=== PATIENT | male | born 1935 | race Hispanic/Latino ===

== ENCOUNTER → 2020-03-02 | Day surgery (SDC) | payer MEDICARE ==
[2020-02-26 12:14] LABS: BASOPHILS % 0.9 % (0.0-1.0); EOSINOPHILS # (AUTO) 0.2 (0.0-0.4); HEMATOCRIT 33.9 % (38.2-49.6); HEMOGLOBIN 10.9 g/dL (14.0-18.0); LYMPHOCYTES # (AUTO) 0.7 (1.0-3.2); MEAN CORPUSCULAR HEMOGLOBIN 31.6 pg (28-32); MEAN CORPUSCULAR HGB CONC 32.2 g/dL (31-35); MEAN CORPUSCULAR VOLUME 98.3 fL (81-99); MONOCYTES # (AUTO) 0.4 (0.2-0.8); MONOCYTES % 16.2 % (4.4-11.3); PLATELET COUNT 153 x10e3/uL (140-360); RED BLOOD COUNT 3.45 x10e6/uL (4.3-5.7); RED CELL DISTRIBUTION WIDTH 13.2 % (11.7-14.4)
[2020-02-26 13:30] LABS: EOSINOPHILS % (MANUAL) 6 % (0-7); LYMPHOCYTES % (MANUAL) 23 % (19-48); MONOCYTES % (MANUAL) 20 % (3.4-9.0); NEUTROPHILS % (MANUAL) 45 % (40-74); RBC MORPHOLOGY COMMENT NORMAL
[2020-02-26 13:31] LABS: PLATELET ESTIMATE ADEQUATE; PLATELET MORPHOLOGY COMMENT NORMAL
[~2020-03-02] MED LIST: FLOMAX0.4 MG PO; HYDROCODON-ACE1 EAC9 PO; LIDOCAINE HCL 2% LOCAL INJ 5 ML SDV VIAL INJ ONE; LISINOPRIL10 MG PO; OMEPRAZOLE40 MG PO; PROPOFOL IV EMULSION 10 MG/ML 20 ML VIAL ONE; SIMETHICONE 40 MG/0.6 ML BTL ONE; ULTRAM 50MG50 MG PO
[2020-03-02 11:30] VITALS: BP 164/75
== END | disposition home or self-care (01) ==
LOC: OR 07:28
PROVIDERS: ATTEND Internal Medicine Gastroenterology
DX: K29.70 Gastritis, unspecified, without bleeding (principal); D12.0 Benign neoplasm of cecum; K44.9 Diaphragmatic hernia without obstruction or gangrene; K59.00 Constipation, unspecified; K57.30 Diverticulosis of large intestine without perforation or abscess without bleeding; K64.8 Other hemorrhoids; Z90.49 Acquired absence of other specified parts of digestive tract; I10 Essential (primary) hypertension; E11.9 Type 2 diabetes mellitus without complications; R93.89 Abnormal findings on diagnostic imaging of other specified body structures; N40.0 Benign prostatic hyperplasia without lower urinary tract symptoms; N28.9 Disorder of kidney and ureter, unspecified; Z01.810 Encounter for preprocedural cardiovascular examination; Z01.812 Encounter for preprocedural laboratory examination; Z20.822 Contact with and (suspected) exposure to COVID-19; Z68.32 Body mass index [BMI] 32.0-32.9, adult
CPT/HCPCS: 36415 ×2; 43239; 45385; 82948; 85025; 88305; 88312; 93005; J2001; J2704; U0002

== ENCOUNTER 2021-10-12 09:07 | Inpatient (IN) | payer MEDICARE ==
[2021-10-07 10:19] LABS: BASOPHILS % 0.3 % (0.0-1.0); EOSINOPHILS # (AUTO) 0.2 (0.0-0.4); EOSINOPHILS % 7.1 % (0.0-6.0); HEMATOCRIT 36.2 % (38.2-49.6); HEMOGLOBIN 11.5 g/dL (14.0-18.0); LYMPHOCYTES # (AUTO) 1.1 (1.0-3.2); LYMPHOCYTES % 34.3 % (18.0-39.1); MEAN CORPUSCULAR HEMOGLOBIN 29.9 pg (28-32); MEAN CORPUSCULAR HGB CONC 31.8 g/dL (31-35); MEAN CORPUSCULAR VOLUME 94.3 fL (81-99); MONOCYTES # (AUTO) 0.4 (0.2-0.8); MONOCYTES % 14.1 % (4.4-11.3); NEUTROPHILS # (AUTO) 1.4 (2.1-6.9); NEUTROPHILS % 43.2 % (38.7-80.0); PLATELET COUNT 180 x10e3/uL (140-360); RED BLOOD COUNT 3.84 x10e6/uL (4.3-5.7); RED CELL DISTRIBUTION WIDTH 14.9 % (11.7-14.4)
[2021-10-07 10:32] LABS: ANION GAP 14.8 mmol/L (8-16); CALCIUM 9.3 mg/dL (8.4-10.2); CREATININE, SERUM 1.63 mg/dL (0.72-1.25); POTASSIUM 4.8 mmol/L (3.5-5.1)
[~2021-10-12] VITALS: Ht 172.7 cm; Wt 81.6 kg
[~2021-10-12 09:07] MED LIST changes: +AMLODIPINE BESYL5 MG PO; +FINASTERIDE5 MG PO; -LIDOCAINE HCL 2% LOCAL INJ 5 ML SDV VIAL INJ ONE; +LINZESS290 MCG PEG; -PROPOFOL IV EMULSION 10 MG/ML 20 ML VIAL ONE; -SIMETHICONE 40 MG/0.6 ML BTL ONE
[2021-10-12] MEDS ORDERED: GENTAMICIN 80MG/NS IV ONE (09:25)
[2021-10-12] MEDS ORDERED: SODIUM CHLORIDE 0.9% 1000ML 1,000 ML ONE (09:32)
[2021-10-12] MEDS ORDERED: PIPERACILLIN/TAZOBACTAM 3.375 GM VIAL ONE (09:32)
[2021-10-12] MEDS ORDERED: B&O 60MG R/S 60 MG SUPP PR ONE (10:21)
[2021-10-12] MEDS ORDERED: IOPAMIDOL 300MG/ML 50ML INFUS..BTL IV ONE (10:21)
[2021-10-12] MEDS ORDERED: B&O 60MG R/S 60 MG SUPP PR PRN (13:00)
[2021-10-12] MEDS ORDERED: ACETAMINOPHEN 1000 MG/100 ML IV PRN (13:00)
[2021-10-12] MEDS ORDERED: ONDANSETRON HCL INJ 2MG/ML 2ML 2 MG/ML VIAL IV PRN (13:00)
[2021-10-12] MEDS ORDERED: DEXAMETHASONE SOD PHOS INJ 4 MG/ML SDV ONE (13:03)
[2021-10-12] MEDS ORDERED: SEVOFLURANE INHAL SOLN 250 ML PEN BTL ONE (13:03)
[2021-10-12] MEDS ORDERED: PROPOFOL IV EMULSION 10 MG/ML 20 ML VIAL ONE (13:03)
[2021-10-12] MEDS ORDERED: ACETAMINOPHEN 1000 MG/100 ML IV ONE (13:03)
[2021-10-12] MEDS ORDERED: POVIDONE IODINE 0.05% 0.05 % ML PO ONE (13:03)
[2021-10-12] MEDS ORDERED: LIDOCAINE HCL 2% LOCAL INJ 5 ML SDV VIAL INJ ONE (13:03)
[2021-10-12] MEDS ORDERED: ONDANSETRON HCL INJ 2MG/ML 2ML 2 MG/ML VIAL ONE (13:03)
[2021-10-12] MEDS ORDERED: FENTANYL CITRATE/PF 100MCG/2 ML INJ ONE ×2 (13:15→13:23)
[2021-10-12 13:45] LABS: BASOPHILS % 0.2 % (0.0-1.0); EOSINOPHILS # (AUTO) 0.1 (0.0-0.4); EOSINOPHILS % 2.4 % (0.0-6.0); HEMATOCRIT 35.7 % (38.2-49.6); HEMOGLOBIN 11.2 g/dL (14.0-18.0); LYMPHOCYTES # (AUTO) 1.8 (1.0-3.2); LYMPHOCYTES % 40.7 % (18.0-39.1); MEAN CORPUSCULAR HGB CONC 31.4 g/dL (31-35); MEAN CORPUSCULAR VOLUME 95.7 fL (81-99); MONOCYTES # (AUTO) 0.3 (0.2-0.8); MONOCYTES % 7.3 % (4.4-11.3); NEUTROPHILS # (AUTO) 2.2 (2.1-6.9); PLATELET COUNT 168 x10e3/uL (140-360); RED BLOOD COUNT 3.73 x10e6/uL (4.3-5.7); RED CELL DISTRIBUTION WIDTH 14.7 % (11.7-14.4)
[2021-10-12] MEDS ORDERED: Morphine 2mg Syringe 2 MG/ML SYR ONE ×2 (13:45→13:58)
[2021-10-12 14:19] LABS: ANION GAP 17.2 mmol/L (8-16); CALCIUM 8.4 mg/dL (8.4-10.2); CREATININE, SERUM 1.43 mg/dL (0.72-1.25); POTASSIUM 4.2 mmol/L (3.5-5.1)
[2021-10-12 14:30] VITALS: BP 154/76
[2021-10-12] MEDS: SODIUM CHLORIDE 0.9% 1000ML 1,000 ML IV SCH (14:30)
[2021-10-12] MEDS: DOCUSATE SODIUM 100 MG CAP PO SCH (16:32)
[2021-10-12] MEDS: ACETAMINOPHEN/CODEINE 300MG - 30MG TAB PO PRN ×2 (16:50→22:02)
[2021-10-12 19:51] VITALS: BP 144/81
[2021-10-12 19:52] VITALS: BP 144/81
[2021-10-12 20:00] VITALS: BP 141/81
[2021-10-12] MEDS: PHENAZOPYRIDINE HCL 100 MG TAB PO PRN (22:02)
[2021-10-13] VITALS (12 sets, daily range): BP systolic 133–145; BP diastolic 56–76
[2021-10-13 04:55] LABS: HEMATOCRIT 35.3 % (38.2-49.6); HEMOGLOBIN 11.4 g/dL (14.0-18.0); LYMPHOCYTES # (AUTO) 0.5 (1.0-3.2); LYMPHOCYTES % 14.9 % (18.0-39.1); MEAN CORPUSCULAR HEMOGLOBIN 30.1 pg (28-32); MEAN CORPUSCULAR HGB CONC 32.3 g/dL (31-35); MEAN CORPUSCULAR VOLUME 93.1 fL (81-99); MONOCYTES # (AUTO) 0.4 (0.2-0.8); NEUTROPHILS # (AUTO) 2.7 (2.1-6.9); NEUTROPHILS % 73.8 % (38.7-80.0); PLATELET COUNT 168 x10e3/uL (140-360); RED BLOOD COUNT 3.79 x10e6/uL (4.3-5.7); RED CELL DISTRIBUTION WIDTH 14.5 % (11.7-14.4)
[2021-10-13 05:14] LABS: ANION GAP 14.4 mmol/L (8-16); CALCIUM 8.5 mg/dL (8.4-10.2); CREATININE, SERUM 1.45 mg/dL (0.72-1.25); POTASSIUM 4.4 mmol/L (3.5-5.1)
[2021-10-13] MEDS: PHENAZOPYRIDINE HCL 100 MG TAB PO PRN ×2 (06:16→20:57)
[2021-10-13] MEDS: ACETAMINOPHEN/CODEINE 300MG - 30MG TAB PO PRN ×2 (06:17→20:57)
[2021-10-13] MEDS ORDERED: PANTOPRAZOLE SOD 40 MG TABEC PO SCH (07:30)
[2021-10-13] MEDS: FINASTERIDE 5 MG TAB PO SCH (09:05)
[2021-10-13] MEDS: TAMSULOSIN HCL 0.4 MG CAP PO SCH (09:05)
[2021-10-13] MEDS: SENNA-S TABLET PO SCH ×2 (09:05→16:05)
[2021-10-13] MEDS: AMLODIPINE BESYLATE 10 MG TAB PO SCH (09:06)
[2021-10-13] MEDS: DOCUSATE SODIUM 100 MG CAP PO SCH ×2 (09:06→16:06)
[2021-10-13] MEDS: PANTOPRAZOLE SOD 40 MG TABEC PO SCH (09:15)
[2021-10-13] MEDS: SODIUM CHLORIDE 0.9% 1000ML 1,000 ML IV SCH (10:46)
[2021-10-14] VITALS (9 sets, daily range): BP systolic 124–155; BP diastolic 58–71
[2021-10-14] MEDS: PHENAZOPYRIDINE HCL 100 MG TAB PO PRN (04:56)
[2021-10-14] MEDS: ACETAMINOPHEN/CODEINE 300MG - 30MG TAB PO PRN ×2 (04:56→16:20)
[2021-10-14 05:05] LABS: BASOPHILS % 0.7 % (0.0-1.0); EOSINOPHILS # (AUTO) 0.1 (0.0-0.4); EOSINOPHILS % 3.3 % (0.0-6.0); HEMATOCRIT 36.7 % (38.2-49.6); HEMOGLOBIN 11.7 g/dL (14.0-18.0); LYMPHOCYTES # (AUTO) 1.1 (1.0-3.2); LYMPHOCYTES % 27.1 % (18.0-39.1); MEAN CORPUSCULAR HEMOGLOBIN 30.2 pg (28-32); MEAN CORPUSCULAR HGB CONC 31.9 g/dL (31-35); MEAN CORPUSCULAR VOLUME 94.6 fL (81-99); MONOCYTES # (AUTO) 0.5 (0.2-0.8); MONOCYTES % 10.9 % (4.4-11.3); NEUTROPHILS # (AUTO) 2.4 (2.1-6.9); NEUTROPHILS % 57.5 % (38.7-80.0); PLATELET COUNT 169 x10e3/uL (140-360); RED BLOOD COUNT 3.88 x10e6/uL (4.3-5.7); RED CELL DISTRIBUTION WIDTH 15.2 % (11.7-14.4)
[2021-10-14 05:47] LABS: ANION GAP 14.8 mmol/L (8-16); CALCIUM 8.8 mg/dL (8.4-10.2); CREATININE, SERUM 1.41 mg/dL (0.72-1.25); POTASSIUM 3.8 mmol/L (3.5-5.1)
[2021-10-14] MEDS ORDERED: ONDANSETRON HCL 4 MG ORAL DISINTEGRATING TAB PO PRN (08:15)
[2021-10-14] MEDS ORDERED: ONDANSETRON HCL INJ 2MG/ML 2ML 2 MG/ML VIAL IV PRN (08:15)
[2021-10-14] MEDS ORDERED: GUAIFENESIN/CODEINE 5 ML LIQD PO PRN (08:15)
[2021-10-14] MEDS ORDERED: POTASSIUM CHLORIDE 10MEQ EA PO ONE (08:45)
[2021-10-14] MEDS ORDERED: FUROSEMIDE INJ 10 MG/ML 2 ML VIAL IV ONE (08:45)
[2021-10-14] MEDS: FINASTERIDE 5 MG TAB PO SCH (09:08)
[2021-10-14] MEDS: SENNA-S TABLET PO SCH ×2 (09:08→16:18)
[2021-10-14] MEDS: DOCUSATE SODIUM 100 MG CAP PO SCH ×2 (09:09→16:18)
[2021-10-14] MEDS: AMLODIPINE BESYLATE 10 MG TAB PO SCH (09:09)
[2021-10-14] MEDS: TAMSULOSIN HCL 0.4 MG CAP PO SCH (09:09)
[2021-10-14] MEDS: PANTOPRAZOLE SOD 40 MG TABEC PO SCH (09:09)
[2021-10-14] MEDS: LEVOFLOXACIN 500 MG TAB PO SCH (09:14)
[2021-10-14] MEDS: BENZONATATE 100 MG CAP PO SCH ×3 (09:14→21:41)
[2021-10-15] VITALS (7 sets, daily range): BP systolic 122–149; BP diastolic 65–79
[2021-10-15 05:13] LABS: BASOPHILS % 0.2 % (0.0-1.0); EOSINOPHILS # (AUTO) 0.2 (0.0-0.4); EOSINOPHILS % 3.3 % (0.0-6.0); HEMATOCRIT 38.5 % (38.2-49.6); HEMOGLOBIN 12.4 g/dL (14.0-18.0); LYMPHOCYTES # (AUTO) 1.3 (1.0-3.2); LYMPHOCYTES % 24.5 % (18.0-39.1); MEAN CORPUSCULAR HGB CONC 32.2 g/dL (31-35); MONOCYTES # (AUTO) 0.7 (0.2-0.8); MONOCYTES % 13.6 % (4.4-11.3); NEUTROPHILS % 57.6 % (38.7-80.0); PLATELET COUNT 191 x10e3/uL (140-360); RED BLOOD COUNT 4.14 x10e6/uL (4.3-5.7); RED CELL DISTRIBUTION WIDTH 15.1 % (11.7-14.4)
[2021-10-15 05:32] LABS: ANION GAP 16.1 mmol/L (8-16); CALCIUM 9.2 mg/dL (8.4-10.2); CREATININE, SERUM 1.47 mg/dL (0.72-1.25); POTASSIUM 4.1 mmol/L (3.5-5.1)
[2021-10-15] MEDS: PANTOPRAZOLE SOD 40 MG TABEC PO SCH (07:30)
[2021-10-15] MEDS: SENNA-S TABLET PO SCH ×2 (09:00→16:25)
[2021-10-15] MEDS: FINASTERIDE 5 MG TAB PO SCH (09:00)
[2021-10-15] MEDS: LEVOFLOXACIN 500 MG TAB PO SCH (09:00)
[2021-10-15] MEDS: AMLODIPINE BESYLATE 10 MG TAB PO SCH (09:00)
[2021-10-15] MEDS: TAMSULOSIN HCL 0.4 MG CAP PO SCH (09:00)
[2021-10-15] MEDS: BENZONATATE 100 MG CAP PO SCH ×3 (09:00→20:44)
[2021-10-15] MEDS: PHENAZOPYRIDINE HCL 100 MG TAB PO PRN (09:42)
[2021-10-15] MEDS: CELECOXIB 100 MG CAP PO SCH ×2 (12:05→16:54)
[2021-10-15] MEDS ORDERED: ONDANSETRON HCL 4 MG ORAL DISINTEGRATING TAB PO PRN (12:15)
[2021-10-15] MEDS: ACETAMINOPHEN/CODEINE 300MG - 30MG TAB PO PRN (20:44)
[2021-10-16] VITALS (8 sets, daily range): BP systolic 111–132; BP diastolic 60–74
[2021-10-16] MEDS: ACETAMINOPHEN/CODEINE 300MG - 30MG TAB PO PRN ×4 (01:48→20:59)
[2021-10-16 05:06] LABS: BASOPHILS % 0.3 % (0.0-1.0); EOSINOPHILS # (AUTO) 0.1 (0.0-0.4); EOSINOPHILS % 3.7 % (0.0-6.0); HEMOGLOBIN 11.4 g/dL (14.0-18.0); LYMPHOCYTES # (AUTO) 0.7 (1.0-3.2); LYMPHOCYTES % 19.9 % (18.0-39.1); MEAN CORPUSCULAR HEMOGLOBIN 30.2 pg (28-32); MEAN CORPUSCULAR HGB CONC 33.5 g/dL (31-35); MEAN CORPUSCULAR VOLUME 90.2 fL (81-99); MONOCYTES # (AUTO) 0.5 (0.2-0.8); MONOCYTES % 14.7 % (4.4-11.3); NEUTROPHILS # (AUTO) 2.1 (2.1-6.9); NEUTROPHILS % 60.2 % (38.7-80.0); PLATELET COUNT 170 x10e3/uL (140-360); RED BLOOD COUNT 3.77 x10e6/uL (4.3-5.7); RED CELL DISTRIBUTION WIDTH 15.3 % (11.7-14.4)
[2021-10-16 05:32] LABS: CALCIUM 8.9 mg/dL (8.4-10.2); CREATININE, SERUM 1.6 mg/dL (0.72-1.25)
[2021-10-16] MEDS: CELECOXIB 100 MG CAP PO SCH ×2 (09:41→16:14)
[2021-10-16] MEDS: BENZONATATE 100 MG CAP PO SCH ×3 (09:41→20:59)
[2021-10-16] MEDS: SENNA-S TABLET PO SCH ×2 (09:41→16:14)
[2021-10-16] MEDS: TAMSULOSIN HCL 0.4 MG CAP PO SCH (09:41)
[2021-10-16] MEDS: FINASTERIDE 5 MG TAB PO SCH (09:42)
[2021-10-16] MEDS: PANTOPRAZOLE SOD 40 MG TABEC PO SCH (09:42)
[2021-10-16] MEDS: AMLODIPINE BESYLATE 10 MG TAB PO SCH (09:42)
[2021-10-16] MEDS: LEVOFLOXACIN 500 MG TAB PO SCH (09:42)
[2021-10-16] MEDS ORDERED: LIDOCAINE 4% PATCH TP ONE (23:45)
[2021-10-16] MEDS ORDERED: ACETAMINOPHEN/CODEINE 300MG - 30MG TAB PO ONE (23:45)
[2021-10-17] VITALS (8 sets, daily range): BP systolic 105–132; BP diastolic 57–67
[2021-10-17] MEDS: ACETAMINOPHEN/CODEINE 300MG - 30MG TAB PO PRN (04:19)
[2021-10-17 05:24] LABS: CREATININE, SERUM 2.06 mg/dL (0.72-1.25)
[2021-10-17] MEDS: PANTOPRAZOLE SOD 40 MG TABEC PO SCH (08:22)
[2021-10-17] MEDS: TAMSULOSIN HCL 0.4 MG CAP PO SCH (08:22)
[2021-10-17] MEDS: BENZONATATE 100 MG CAP PO SCH ×3 (08:22→20:45)
[2021-10-17] MEDS: FINASTERIDE 5 MG TAB PO SCH (08:22)
[2021-10-17] MEDS: SENNA-S TABLET PO SCH ×2 (08:23→16:07)
[2021-10-17] MEDS: AMLODIPINE BESYLATE 10 MG TAB PO SCH (08:23)
[2021-10-17] MEDS ORDERED: SODIUM CHLORIDE 0.45% 1,000 ML IV ONE (09:00)
[2021-10-17] MEDS: HYDROCODONE/APAP 10MG-325MG TAB PO PRN ×2 (16:07→20:45)
[2021-10-18] VITALS (7 sets, daily range): BP systolic 126–153; BP diastolic 59–80
[2021-10-18] MEDS: HYDROCODONE/APAP 10MG-325MG TAB PO PRN ×4 (04:20→20:51)
[2021-10-18 04:56] LABS: BASOPHILS % 0.6 % (0.0-1.0); EOSINOPHILS # (AUTO) 0.3 (0.0-0.4); EOSINOPHILS % 7.5 % (0.0-6.0); HEMATOCRIT 33.5 % (38.2-49.6); HEMOGLOBIN 10.7 g/dL (14.0-18.0); LYMPHOCYTES # (AUTO) 0.7 (1.0-3.2); LYMPHOCYTES % 19.5 % (18.0-39.1); MEAN CORPUSCULAR HEMOGLOBIN 30.1 pg (28-32); MEAN CORPUSCULAR HGB CONC 31.9 g/dL (31-35); MEAN CORPUSCULAR VOLUME 94.4 fL (81-99); MONOCYTES # (AUTO) 0.4 (0.2-0.8); MONOCYTES % 12.1 % (4.4-11.3); NEUTROPHILS # (AUTO) 2.1 (2.1-6.9); NEUTROPHILS % 59.2 % (38.7-80.0); PLATELET COUNT 191 x10e3/uL (140-360); RED BLOOD COUNT 3.55 x10e6/uL (4.3-5.7); RED CELL DISTRIBUTION WIDTH 14.8 % (11.7-14.4)
[2021-10-18 05:19] LABS: CALCIUM 8.7 mg/dL (8.4-10.2); CREATININE, SERUM 2.03 mg/dL (0.72-1.25)
[2021-10-18] MEDS: PANTOPRAZOLE SOD 40 MG TABEC PO SCH (08:27)
[2021-10-18] MEDS: TAMSULOSIN HCL 0.4 MG CAP PO SCH (08:54)
[2021-10-18] MEDS: BENZONATATE 100 MG CAP PO SCH ×3 (08:54→20:51)
[2021-10-18] MEDS: FINASTERIDE 5 MG TAB PO SCH (08:54)
[2021-10-18] MEDS: AMLODIPINE BESYLATE 10 MG TAB PO SCH (08:54)
[2021-10-18] MEDS: SENNA-S TABLET PO SCH ×3 (08:54→16:40)
[2021-10-18] MEDS: IRON SUCROSE 100 MG in SODIUM CHLORIDE 0.9% 100 ML IV SCH (08:56)
[2021-10-19] VITALS (9 sets, daily range): BP systolic 122–158; BP diastolic 65–89
[2021-10-19 04:59] LABS: BASOPHILS % 0.8 % (0.0-1.0); EOSINOPHILS # (AUTO) 0.2 (0.0-0.4); HEMATOCRIT 31.4 % (38.2-49.6); HEMOGLOBIN 10.5 g/dL (14.0-18.0); LYMPHOCYTES # (AUTO) 0.5 (1.0-3.2); LYMPHOCYTES % 21.3 % (18.0-39.1); MEAN CORPUSCULAR HEMOGLOBIN 30.5 pg (28-32); MEAN CORPUSCULAR HGB CONC 33.4 g/dL (31-35); MEAN CORPUSCULAR VOLUME 91.3 fL (81-99); MONOCYTES # (AUTO) 0.4 (0.2-0.8); MONOCYTES % 16.3 % (4.4-11.3); NEUTROPHILS # (AUTO) 1.2 (2.1-6.9); NEUTROPHILS % 50.3 % (38.7-80.0); PLATELET COUNT 173 x10e3/uL (140-360); RED BLOOD COUNT 3.44 x10e6/uL (4.3-5.7)
[2021-10-19 05:17] LABS: ANION GAP 13.9 mmol/L (8-16); CALCIUM 8.5 mg/dL (8.4-10.2); CREATININE, SERUM 1.66 mg/dL (0.72-1.25); POTASSIUM 3.9 mmol/L (3.5-5.1)
[2021-10-19] MEDS: PANTOPRAZOLE SOD 40 MG TABEC PO SCH (07:30)
[2021-10-19] MEDS: SENNA-S TABLET PO SCH ×2 (09:00→18:00)
[2021-10-19] MEDS: BENZONATATE 100 MG CAP PO SCH ×3 (09:00→20:53)
[2021-10-19] MEDS: TAMSULOSIN HCL 0.4 MG CAP PO SCH (09:00)
[2021-10-19] MEDS: AMLODIPINE BESYLATE 10 MG TAB PO SCH (09:00)
[2021-10-19] MEDS: FINASTERIDE 5 MG TAB PO SCH (09:00)
[2021-10-19] MEDS ORDERED: SODIUM CHLORIDE 0.9% 250ML 250 ML ONE (10:12)
[2021-10-19] MEDS: IRON SUCROSE 100 MG in SODIUM CHLORIDE 0.9% 100 ML IV SCH (10:28)
[2021-10-19] MEDS: HYDROCODONE/APAP 10MG-325MG TAB PO PRN ×2 (10:28→20:55)
[2021-10-20] VITALS: BP 122/70
[2021-10-20 04:00] VITALS: BP 128/61
[2021-10-20] MEDS: HYDROCODONE/APAP 10MG-325MG TAB PO PRN ×3 (04:54→15:10)
[2021-10-20] MEDS: PANTOPRAZOLE SOD 40 MG TABEC PO SCH (07:30)
[2021-10-20 08:11] VITALS: BP 142/67
[2021-10-20] MEDS: SENNA-S TABLET PO SCH (09:00)
[2021-10-20] MEDS: IRON SUCROSE 100 MG in SODIUM CHLORIDE 0.9% 100 ML IV SCH (09:00)
[2021-10-20] MEDS: AMLODIPINE BESYLATE 10 MG TAB PO SCH (09:00)
[2021-10-20] MEDS: BENZONATATE 100 MG CAP PO SCH ×2 (09:00→15:10)
[2021-10-20] MEDS: TAMSULOSIN HCL 0.4 MG CAP PO SCH (09:00)
[2021-10-20] MEDS: FINASTERIDE 5 MG TAB PO SCH (09:00)
[2021-10-20] MEDS: PHENAZOPYRIDINE HCL 100 MG TAB PO PRN (09:39)
[2021-10-20 09:42] VITALS: BP 142/67
[2021-10-20 11:57] VITALS: BP 160/74
[2021-10-20] MEDS ORDERED: LEVOFLOXACIN250 MG PO (14:43)
[2021-10-20] MEDS ORDERED: PYRIDIUM200 MG PO (14:44)
[2021-10-20 16:02] VITALS: BP 151/69
== END 2021-10-20 16:47 | disposition home health service (06) | DRG 713 ==
LOC: OR 09:07 → PACU V 12:57 → MED/SURG 14:03
PROVIDERS: ADMIT Internal Medicine; ATTEND Internal Medicine
PROC: 0T788ZZ Dilation of Bilateral Ureters, Via Natural or Artificial Opening Endoscopic (ICD-10-PCS; 2021-10-12)
PROC: BT141ZZ Fluoroscopy of Kidneys, Ureters and Bladder using Low Osmolar Contrast (ICD-10-PCS; 2021-10-12)
PROC: 0VB07ZX Excision of Prostate, Via Natural or Artificial Opening, Diagnostic (ICD-10-PCS; principal; 2021-10-12 11:08)
PROC: 0VB08ZZ Excision of Prostate, Via Natural or Artificial Opening Endoscopic (ICD-10-PCS; 2021-10-12 11:08)
DX: N40.1 Benign prostatic hyperplasia with lower urinary tract symptoms (principal); D62 Acute posthemorrhagic anemia; N17.9 Acute kidney failure, unspecified; N13.8 Other obstructive and reflux uropathy; R33.8 Other retention of urine; C61 Malignant neoplasm of prostate; R31.0 Gross hematuria; I12.9 Hypertensive chronic kidney disease with stage 1 through stage 4 chronic kidney disease, or unspecified chronic kidney disease; N18.30 Chronic kidney disease, stage 3 unspecified; E78.5 Hyperlipidemia, unspecified; Z85.72 Personal history of non-Hodgkin lymphomas; N32.81 Overactive bladder; Q54.9 Hypospadias, unspecified; R35.1 Nocturia; Z20.822 Contact with and (suspected) exposure to COVID-19
CPT/HCPCS: 36415; 71046; 74420; 76872; 76998; 80048; 83735; 85025; 88304; 88305; 93005; 93971; 94799; 96360; 99251; C1758; J1100; J1580; J1756; J1940; J2001; J2270; J2405; J2543; J3010; J7030; J7050